=== PATIENT | female | born 1960 | race Two or more races ===

== ENCOUNTER 2017-05-07 07:42 | Inpatient (IN) | payer SELFPAY ==
[~2017-05-07 07:42] MED LIST: LIDOCAINE 1% PF 2 ML VIAL. ID; MORPHINE SULFATE 2 MG/ML DISP.SYRIN. IV; ONDANSETRON PF 4 MG/2 ML VIAL. IV; fentaNYL PF VIAL 100 MCG/2 ML VIAL IV
[2017-05-07] MEDS ORDERED: LIDOCAINE 2% PF Vial for OR 5 ML VIAL. (08:18)
[2017-05-07] MEDS ORDERED: SUCCINYLCHOLINE 200 MG/10 ML VIAL. (08:18)
[2017-05-07] MEDS ORDERED: fentaNYL PF VIAL 100 MCG/2 ML VIAL ×3 (08:18→12:55)
[2017-05-07] MEDS ORDERED: PROPOFOL 20 ML IV (08:18)
[2017-05-07] MEDS ORDERED: ROCURONIUM 50 MG/5 ML VIAL. (08:18)
[2017-05-07 08:19] LABS: ADD MAN DIFF? NO
[2017-05-07 08:32] LABS: ANION GAP 8 (6-14); BLOOD UREA NITROGEN 10 mg/dL (7-20); BUN/CREATININE RATIO 14 (6-20); CALCIUM 9.4 mg/dL (8.5-10.1); CARBON DIOXIDE 30 mmol/L (21-32); CHLORIDE 103 mmol/L (98-107); CREATININE 0.7 mg/dL (0.6-1.0); GFR 86.9; GLUCOSE 110 mg/dL (70-99); POTASSIUM 3.9 mmol/L (3.5-5.1); SODIUM 141 mmol/L (136-145)
[2017-05-07] MEDS: IV RINGERS,LACTATED 1000ML 1,000 ML IV (08:33)
[2017-05-07 08:38] LABS: ALBUMIN 3.8 g/dL (3.4-5.0); ALBUMIN/GLOBULIN RATIO 0.9 (1.0-1.7); ALK PHOS 98 U/L (46-116); ALT (SGPT) 38 U/L (14-59); AST (SGOT) 22 U/L (15-37); TOTAL BILIRUBIN 0.4 mg/dL (0.2-1.0); TOTAL PROTEIN 7.9 g/dL (6.4-8.2)
[2017-05-07 08:44] LABS: BASO % 0 % (0-3); EOS # 0.2 x10^3/uL (0.0-0.7); EOS % 2 % (0-3); HEMATOCRIT 40.1 % (36.0-47.0); HEMOGLOBIN 13.4 g/dL (12.0-15.5); LYMPH # 3.5 x10^3/uL (1.0-4.8); LYMPH % 41 % (24-48); MEAN CORPUSCULAR HEMOGLOBIN 30 pg (25-35); MEAN CORPUSCULAR HGB CONC 33 g/dL (31-37); MEAN CORPUSCULAR VOLUME 91 fL (79-100); MONO # 0.6 x10^3/uL (0.0-1.1); MONO % 7 % (0-9); NEUT # 4.3 x10^3uL (1.8-7.7); NEUT % 50 % (31-73); PLATELET COUNT 346 x10^3/uL (140-400); PROTHROMBIN TIME PATIENT 12.4 SEC (11.7-14.0); RED BLOOD COUNT 4.41 x10^6/uL (3.50-5.40); RED CELL DISTRIBUTION WIDTH 13.1 % (11.5-14.5); WHITE BLOOD COUNT 8.6 x10^3/uL (4.0-11.0)
[2017-05-07] MEDS ORDERED: DESFLURANE 61 TO 120 MINUTES IH (10:15)
[2017-05-07] MEDS ORDERED: DEXAMETHASONE SOD PHOS 20 MG/5 ML VIAL. (10:15)
[2017-05-07] MEDS ORDERED: GLYCOPYRROLATE 1 MG/5 ML VIAL. (10:39)
[2017-05-07] MEDS ORDERED: ONDANSETRON PF 4 MG/2 ML VIAL. (10:39)
[2017-05-07] MEDS ORDERED: NEOSTIGMINE 10 MG/10 ML VIAL. (10:39)
[2017-05-07] MEDS: BUPIVAC MPF-EPI 0.5%-1:200000 30 ML VIAL. INJ ×2 (12:06→12:10)
[2017-05-07] MEDS ORDERED: 0.9 % SODIUM CHLORIDE 10 ML DISP.SYRIN. IV (12:45)
[2017-05-07] MEDS ORDERED: PROCHLORPERAZINE 10 MG/2 ML VIAL. (12:55)
[2017-05-07] MEDS ORDERED: ceFAZolin SODIUM 1 GM in IV DEXTROSE 5% 50 ML IV (13:00)
[2017-05-07] MEDS: PROCHLORPERAZINE 10 MG/2 ML VIAL. IV (13:02)
[2017-05-07] MEDS: fentaNYL PF VIAL 100 MCG/2 ML VIAL IV ×2 (13:05→15:05)
[2017-05-07] MEDS ORDERED: NALOXONE 0.4 MG/ML VIAL. IV (14:15)
[2017-05-07] MEDS: IV NORMAL SALINE 1000ML BAG 1,000 ML IV (15:30)
[2017-05-07] MEDS: ceFAZolin SODIUM IV Push 1 GM VIAL. IVP (18:05)
[2017-05-07] MEDS: POTASSIUM CL 20MEQ-0.45% NACL 1,000 ML IV ×2 (18:10→22:30)
[2017-05-07] MEDS ORDERED: INFLUENZA VAX SCREEN BY RX. MC (19:30)
[2017-05-07] MEDS: FAMOTIDINE 20 MG/2 ML VIAL IVP (21:11)
[2017-05-07] MEDS: ONDANSETRON PF 4 MG/2 ML VIAL. IV (21:37)
[2017-05-08] MEDS: ceFAZolin SODIUM IV Push 1 GM VIAL. IVP ×2 (02:08→10:48)
[2017-05-08] MEDS: ONDANSETRON PF 4 MG/2 ML VIAL. IV ×2 (03:59→08:38)
[2017-05-08 06:03] LABS: ADD MAN DIFF? NO
[2017-05-08 06:16] LABS: BASO % 0 % (0-3); EOS % 0 % (0-3); HEMATOCRIT 39.1 % (36.0-47.0); HEMOGLOBIN 12.8 g/dL (12.0-15.5); LYMPH # 2.2 x10^3/uL (1.0-4.8); LYMPH % 15 % (24-48); MEAN CORPUSCULAR HEMOGLOBIN 30 pg (25-35); MEAN CORPUSCULAR HGB CONC 33 g/dL (31-37); MEAN CORPUSCULAR VOLUME 91 fL (79-100); MONO # 0.9 x10^3/uL (0.0-1.1); MONO % 6 % (0-9); NEUT # 11.8 x10^3uL (1.8-7.7); NEUT % 79 % (31-73); PLATELET COUNT 341 x10^3/uL (140-400); RED BLOOD COUNT 4.28 x10^6/uL (3.50-5.40); RED CELL DISTRIBUTION WIDTH 13.5 % (11.5-14.5); WHITE BLOOD COUNT 14.9 x10^3/uL (4.0-11.0)
[2017-05-08 06:31] LABS: ANION GAP 11 (6-14); BLOOD UREA NITROGEN 9 mg/dL (7-20); CALCIUM 9.1 mg/dL (8.5-10.1); CARBON DIOXIDE 25 mmol/L (21-32); CHLORIDE 102 mmol/L (98-107); CREATININE 0.6 mg/dL (0.6-1.0); GFR 103.8; GLUCOSE 109 mg/dL (70-99); POTASSIUM 3.9 mmol/L (3.5-5.1); SODIUM 138 mmol/L (136-145)
[2017-05-08] MEDS: FAMOTIDINE 20 MG/2 ML VIAL IVP (08:38)
[2017-05-08] MEDS: FLU VACC QS2017-18 (36MOS+)/PF 0.5 ML SYRINGE. VAX IM (08:44)
[2017-05-08] MEDS: POTASSIUM CL 20MEQ-0.45% NACL 1,000 ML IV (10:47)
[2017-05-09 04:21] LABS: ADD MAN DIFF? NO
[2017-05-09 04:24] LABS: BASO # 0.1 x10^3/uL (0.0-0.2); BASO % 1 % (0-3); EOS # 0.1 x10^3/uL (0.0-0.7); EOS % 1 % (0-3); HEMATOCRIT 36.8 % (36.0-47.0); HEMOGLOBIN 12.3 g/dL (12.0-15.5); LYMPH # 2.8 x10^3/uL (1.0-4.8); LYMPH % 23 % (24-48); MEAN CORPUSCULAR HEMOGLOBIN 30 pg (25-35); MEAN CORPUSCULAR HGB CONC 33 g/dL (31-37); MEAN CORPUSCULAR VOLUME 91 fL (79-100); MONO % 8 % (0-9); NEUT # 8.3 x10^3uL (1.8-7.7); NEUT % 68 % (31-73); PLATELET COUNT 311 x10^3/uL (140-400); RED BLOOD COUNT 4.04 x10^6/uL (3.50-5.40); RED CELL DISTRIBUTION WIDTH 13.8 % (11.5-14.5); WHITE BLOOD COUNT 12.2 x10^3/uL (4.0-11.0)
[2017-05-09 04:36] LABS: ANION GAP 9 (6-14); BLOOD UREA NITROGEN 9 mg/dL (7-20); CALCIUM 8.4 mg/dL (8.5-10.1); CARBON DIOXIDE 27 mmol/L (21-32); CHLORIDE 101 mmol/L (98-107); CREATININE 0.7 mg/dL (0.6-1.0); GFR 86.9; GLUCOSE 93 mg/dL (70-99); SODIUM 137 mmol/L (136-145)
[2017-05-09] MEDS: IV NORMAL SALINE 1000ML BAG 1,000 ML IV (08:00)
[2017-05-09] MEDS ORDERED: ONDANSETRON PF 4 MG/2 ML VIAL. IV (08:45)
[2017-05-09 09:24] LABS: LACTIC ACID 0.7 mmol/L (0.4-2.0)
[2017-05-09] MEDS: ACETAMINOPHEN 120 MG SUPP.RECT. PR (09:32)
[2017-05-09] MEDS: oxyCODONE/APAP 7.5/325 1 TAB TABLET PO ×2 (14:47→20:39)
[2017-05-09] MEDS: HEPARIN PF for SUB-Q USE 5,000 UNIT/0.5 ML VIAL. SQ (17:16)
[2017-05-09] MEDS ORDERED: HEPARIN PF for SUB-Q USE 5,000 UNIT/0.5 ML VIAL. SQ (21:00)
[2017-05-10 05:55] LABS: ADD MAN DIFF? NO
[2017-05-10 05:59] LABS: BASO # 0.1 x10^3/uL (0.0-0.2); BASO % 1 % (0-3); EOS # 0.2 x10^3/uL (0.0-0.7); EOS % 2 % (0-3); HEMATOCRIT 36.8 % (36.0-47.0); HEMOGLOBIN 12.2 g/dL (12.0-15.5); LYMPH # 3.1 x10^3/uL (1.0-4.8); LYMPH % 31 % (24-48); MEAN CORPUSCULAR HEMOGLOBIN 31 pg (25-35); MEAN CORPUSCULAR HGB CONC 33 g/dL (31-37); MEAN CORPUSCULAR VOLUME 92 fL (79-100); MONO # 0.8 x10^3/uL (0.0-1.1); MONO % 8 % (0-9); NEUT # 5.8 x10^3uL (1.8-7.7); NEUT % 58 % (31-73); PLATELET COUNT 320 x10^3/uL (140-400); RED CELL DISTRIBUTION WIDTH 13.7 % (11.5-14.5)
[2017-05-10 06:25] LABS: ANION GAP 4 (6-14); BLOOD UREA NITROGEN 6 mg/dL (7-20); CALCIUM 8.6 mg/dL (8.5-10.1); CARBON DIOXIDE 32 mmol/L (21-32); CHLORIDE 103 mmol/L (98-107); CREATININE 0.6 mg/dL (0.6-1.0); GFR 103.8; GLUCOSE 106 mg/dL (70-99); POTASSIUM 4.2 mmol/L (3.5-5.1); SODIUM 139 mmol/L (136-145)
[2017-05-10] MEDS: oxyCODONE/APAP 7.5/325 1 TAB TABLET PO ×3 (08:33→22:25)
[2017-05-10] MEDS: HEPARIN PF for SUB-Q USE 5,000 UNIT/0.5 ML VIAL. SQ ×2 (08:40→21:32)
[2017-05-10] MEDS: DOCUSATE SODIUM 100 MG CAPSULE. PO ×2 (13:21→21:32)
[2017-05-10 21:09] LABS: POC GLUCOSE 85 mg/dL (70-99)
[2017-05-11] MEDS: DOCUSATE SODIUM 100 MG CAPSULE. PO ×3 (08:59→21:20)
[2017-05-11] MEDS: HEPARIN PF for SUB-Q USE 5,000 UNIT/0.5 ML VIAL. SQ ×2 (09:02→21:24)
[2017-05-11 12:00] LABS: ADD MAN DIFF? NO
[2017-05-11 12:09] LABS: BASO # 0.1 x10^3/uL (0.0-0.2); BASO % 1 % (0-3); EOS # 0.2 x10^3/uL (0.0-0.7); EOS % 2 % (0-3); HEMATOCRIT 38.6 % (36.0-47.0); HEMOGLOBIN 12.8 g/dL (12.0-15.5); LYMPH # 2.8 x10^3/uL (1.0-4.8); LYMPH % 32 % (24-48); MEAN CORPUSCULAR HEMOGLOBIN 30 pg (25-35); MEAN CORPUSCULAR HGB CONC 33 g/dL (31-37); MEAN CORPUSCULAR VOLUME 91 fL (79-100); MONO # 0.7 x10^3/uL (0.0-1.1); MONO % 8 % (0-9); NEUT # 5.1 x10^3uL (1.8-7.7); NEUT % 57 % (31-73); PLATELET COUNT 382 x10^3/uL (140-400); RED BLOOD COUNT 4.22 x10^6/uL (3.50-5.40); RED CELL DISTRIBUTION WIDTH 13.3 % (11.5-14.5); WHITE BLOOD COUNT 8.9 x10^3/uL (4.0-11.0)
[2017-05-11 12:17] LABS: ANION GAP 9 (6-14); BLOOD UREA NITROGEN 6 mg/dL (7-20); BUN/CREATININE RATIO 9 (6-20); CALCIUM 9.1 mg/dL (8.5-10.1); CARBON DIOXIDE 28 mmol/L (21-32); CHLORIDE 101 mmol/L (98-107); CREATININE 0.7 mg/dL (0.6-1.0); GFR 86.9; GLUCOSE 84 mg/dL (70-99); POTASSIUM 3.8 mmol/L (3.5-5.1); SODIUM 138 mmol/L (136-145)
[2017-05-11 12:23] LABS: ALBUMIN/GLOBULIN RATIO 0.7 (1.0-1.7); ALK PHOS 133 U/L (46-116); ALT (SGPT) 37 U/L (14-59); AST (SGOT) 27 U/L (15-37); TOTAL BILIRUBIN 0.3 mg/dL (0.2-1.0); TOTAL PROTEIN 7.6 g/dL (6.4-8.2)
[2017-05-11] MEDS: CEPHALEXIN 250 MG CAPSULE. PO ×3 (12:35→21:20)
[2017-05-11] MEDS: LACTOBACILLUS RHAMNOSUS GG 1 CAPSULE. PO (21:20)
[2017-05-11] MEDS: oxyCODONE/APAP 7.5/325 1 TAB TABLET PO (23:46)
[2017-05-12] MEDS: DOCUSATE SODIUM 100 MG CAPSULE. PO (09:31)
[2017-05-12] MEDS: CEPHALEXIN 250 MG CAPSULE. PO (09:31)
[2017-05-12] MEDS: LACTOBACILLUS RHAMNOSUS GG 1 CAPSULE. PO (09:31)
[2017-05-12] MEDS: HEPARIN PF for SUB-Q USE 5,000 UNIT/0.5 ML VIAL. SQ (09:34)
== END 2017-05-12 11:30 | disposition home or self-care (01) | DRG 355 ==
LOC: SURG 07:42 → 4 NORTH 12:40
PROC: 0WUF0JZ Supplement Abdominal Wall with Synthetic Substitute, Open Approach (ICD-10-PCS; principal; 2017-05-07 09:40)
DX: K43.6 Other and unspecified ventral hernia with obstruction, without gangrene (principal); D72.829 Elevated white blood cell count, unspecified; R19.00 Intra-abdominal and pelvic swelling, mass and lump, unspecified site; Z90.710 Acquired absence of both cervix and uterus
CPT/HCPCS: 36415; 71046; 80048; 80053; 82962; 83605; 85025; 85610; 87040; 90686; A4215; C1781; G0238; J0330; J0690; J0780; J1100; J1170; J2405; J2704; J2710; J3010; J3490; J7030; J7120; S0028